=== PATIENT | male | born 1965 | race African-American/Black ===

== ENCOUNTER 2024-11-06 15:16 | Outpatient (AMB) | payer OTHER, SELFPAY ==
--- NOTE | 2024-11-06 15:21 | MHC.OFFVIS ---
Vital Signs 11/06/24 15:28 Height 6 ft 3 in Weight 276 lb BMI 34.5 BP 144/80 H Blood Pressure Location Rt brachial Position Sitting Pulse 64 Intake Visit Reasons: ventral hernia Intake Note: Patient referred by Dr. Smith for ventral hernia. Present for 5yrs. Patient c/o: on and off pain. Hx of umbilical hernia repair December 2003 in [place], [place]. [employer] Required: No Accompanied by: Self / Same As Patient Allergies No Known Allergies Allergy (Verified 11/06/24 15:25) Medication List - Last Reconciled 11/06/24 by Owen Douglas MD atorvastatin (Lipitor) 40 mg PO DAILY fluticasone propion-salmeterol 115-21 mcg/actuation (Advair HFA) 2 puffs inhalation Q12H gabapentin 600 mg PO TID montelukast 10 mg PO DAILY tamsulosin 0.4 mg PO BEDTIME NS HPI HPI ventral hernia: Details: 58-year-old male referred for an eventual hernia. He has noticed this mass in the epigastric area for over 5 years now. This has been increasing in size. He says that this has comfort has been also worsening so he wants this hernia repaired He says he had a hernia on this similar area about 20 years ago. He denies GI complaints. He says he is in good health overall. He admits to having asthma and BPH. 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, site unspecified Ventral hernia without obstruction or gangrene Other asthma Essential (primary) hypertension Hyperlipidemia Surgical History H/O cervical discectomy Hx of umbilical hernia repair Social History Patient Tobacco Use Status: Former Tobacco user Review of Systems Const Denies chills and Denies fever(s) Card Denies chest pain, Denies dyspnea and Denies dyspnea on exertion Resp Denies cough, Denies dyspnea and Denies dyspnea on exertion GI Denies hematochezia and Denies change in bowel habits Denies hematuria, Denies difficulty urinating and Reports nocturia Musc Denies back pain and Denies limited range of motion Neuro Denies focal weakness and Denies convulsions Psych Denies depression and Denies mood swings Physical Exam Vital Signs: Last Vital Signs Pulse 64 11/06/24 15:28 BP 144/80 H 11/06/24 15:28 BMI result Body Mass Index 34.5 Const Other: Obesity General: comfortable and no acute distress Orientation/consciousness: patient oriented x3 Neck Neck: Yes no lymphadenopathy Resp Auscultation: clear to auscultation bilaterally Cardio Rhythm: regular rhythm GI Other: Large vague hernia in the epigastric area with a surgical scar below this; the hernia is about 4 cm in diameter and is not reducible Palpation (GI): Soft to palpation, nontender and no guarding Neuro General: patient oriented x3 Assessment & Plan Assessment & Plan (1) Recurrent ventral hernia: Code(s): K43.2 - Incisional hernia without obstruction or gangrene Category: Medical Plan: He has a nonreducible recurrent ventral hernia as described above. He describes increasing discomfort. He wants to proceed with repair. I explained the technique of repair with possible mesh placement. I reviewed the risks including but not limited to bleeding, infections, bowel injury, recurrence, postop pain, as well as the benefits and alternatives. I explained to him what to expect postoperatively He says he understands and wants to proceed In view of the large size of the hernia, I will order for a CAT scan as well to allow for planning of approach for surgery. Orders: Orders CT abdomen pelvis wo IV con 11/06/24 K43.2 - Incisional hernia without obstruction or gangrene Medications: New tamsulosin 0.4 mg PO BEDTIME 1 cap 0RF NS montelukast 10 mg PO DAILY 30 tabs 0RF atorvastatin (Lipitor) 40 mg PO DAILY 30 tabs 0RF gabapentin 600 mg PO TID 30 tabs 0RF fluticasone propion-salmeterol 115-21 mcg/actuation (Advair HFA) 2 puffs inhalation Q12H 12 grams 0RF Coding Level of Care Code New Pt Level 3 (29440) Diagnoses Recurrent ventral hernia K43.2
[2024-11-06 15:28] VITALS: BP 144/80; PULSE 64; BMI 34.5
--- OUTSIDE RECORDS SUMMARY | 2024-11-06 15:52 | XMS_ITS | Clinical Summary ---
Author Organization [facility] [address] [facility] [address] Address [address] [place] [address] Phone Care Team Providers Care Gaming Surveillance Observer Name Role Phone Olivia Smith MD Primary Care Provider [phone] Allergies Active Allergy Reactions Criticality Noted Date Comments Mold Wheezing Low 10/29/2020 Pollen Extracts 10/04/2015 Medications fluticasone propionate (FLONASE) 50 mcg/actuation nasal spray INSTILL Two sprays per nostril once daily 12/29/19 24 Active tamsulosin (FLOMAX) 0.4 mg 24 hr capsule 07/27/19 24 Active betamethasone, augmented, (DIPROLENE-AF) 0.05 % cream Apply bid prn rash 06/22/19 24 Active albuterol HFA (PROAIR HFA ; PROVENTIL HFA ; VENTOLIN HFA) 90 mcg/actuation inhaler Inhale 2 Puffs into the lungs every 4 hours as needed for Cough or Wheezing. 12/05/19 23 Active testosterone 50 mg/5 gram (1 %) gel daily. 07/30/19 23 Active polyethylene glycol (PEG) 17 gram/dose oral powder Take 17 g by mouth daily. Dissolved in 6 oz water 11/10/19 20 Active inhalat.spacing dev,large mask spacer Use as directed 07/13/19 15 Active fluticasone propion-salmete roL (Advair HFA) 115-21 mcg/actuation inhalerIndicati ons:Mild persistent asthma, unspecified whether complicated Inhale 1 puff by mouth 2 (two) times a day. Rinse mouth with water after use to reduce aftertaste and incidence of candidiasis. Do not swallow. 180 each 03/28/20 24 Active montelukast (SINGULAIR) 10 mg tablet Take 1 Tablet by mouth at bedtime. 90 tablet 06/21/19 25 Active pantoprazole (PROTONIX) 40 mg EC tablet Take 1 tablet (40 mg total) by mouth 1 (one) time each day before breakfast. Do not crush, chew, or split. 30 each 08/18/19 25 026 Active atorvastatin (LIPITOR) 40 mg tablet Take 1 Tablet by mouth daily. 90 tablet 1 10/27/19 25 Active atorvastatin (LIPITOR) 40 mg tablet Take 1 Tablet by mouth daily. 90 tablet 1 04/28/19 25 025 Discontinued Active Problems Problem Noted Date Diagnosed Date Chest pain of uncertain etiology 08/16/2024 Assessment & Plan (08/17/2024 3:23 AM EDT): - Being hospitalized for substernal chest pain worrisome for ACS - 58-year-old man with relatively few medical problems including obesity to BMI above 34; hyperlipidemia; family history of CAD; and BPH is being hospitalized - Came to the ED with intermittent chest pressure accompanied by worsening exertional shortness of breath over the course of 3 days; denying orthopnea, nausea, palpitations, vomiting, or dizziness - In the ED, initial vital signs significant for elevated blood pressures; specifically blood pressure 140/92 mmHg, pulse 69 bpm, respiration 18 bpm, temperature 36.6 discharges, O2 sat 97% on room air and BMI documented at 34.5; twelve-lead EKG showed normal sinus rhythm at 65 bpm with no significant ST-T wave changes; screening blood test beginning from high-sensitivity cardiac troponin was normal at 4 initially and an hour later at 5; CBC, CMP, lipase, magnesium and BNP all essentially within normal limits; he remained symptom-free in the ED and hospital medicine was asked admit for chest pain with shortness of breath. For ACS for this further evaluation - Would admit to hospital medicine for chest pain worrisome for ACS; telemetry; completely exclude ACS by cardiac exam and EKG; interval echo; cardiology consult; consider inpatient versus outpatient cardiac stress test guided by cardiology input Hypertension 03/26/2022 Overview (02/01/2024): Last Assessment & Plan: Patient's blood pressure was under excellent control with a reading today of 130/80. He is not on any antihypertensive medical therapies. I have reviewed with the patient the importance of a heart healthy lifestyle which includes eating a low-fat low- salt diet, getting regular exercise, maintaining a healthy weight, not smoking, and following up with routine medical care. Assessment & Plan (08/17/2024 3:22 AM EDT): - Continue outpatient regimen for known hypertension; monitor BP control Edema 03/26/2022 Overview (02/01/2024): Last Assessment & Plan: We did discuss his leg edema. It is better at this point. We did discuss doing a venous reflux study to rule out insufficiency as a cause of his leg edema. He is in favor of doing this. I have ordered this for him. He will continue to work on conservative management including salt avoidance, leg elevation and compression stocking usage. If his legs become edematous he will let us know. We also will monitor his blood pressure as this could be playing a role. If this does not improve then he will let us know. BPH (benign prostatic hyperplasia) 08/04/2021 Overview (02/01/2024): urology Liver mass 11/09/2019 Obesity (BMI 30-39.9) 05/05/2019 Assessment & Plan (08/17/2024 3:22 AM EDT): - Continue to advise on the benefit of weight loss targeting ideal body weight and to review the cardiovascular risks of continued obesity - Would coordinate weight loss strategy and programming with PCP - Review that weight loss strategies combining exercise with diet and high degree of patient's motivation have benefits - Avoid weight loss strategies full of the promises of rapid and large amount of weight changes which are difficult to maintain in real life, skilled nursing Hypogonadism in male 02/17/2017 Overview (02/01/2024): On testosterone gel Asthma 09/27/2014 Hypercholesteremia 05/16/2014 Overview (02/01/2024): Last Assessment & Plan: Patient's last LDL cholesterol was 57. This is showing excellent control. I have renewed his atorvastatin 40 mg once a day for the next year. I have asked him to discuss with his primary care provider to take over this medication as he does not need to follow with cardiology for the primary prevention for the management of his hyperlipidemia. Patient is in agreement with this. He will call if he develops any new symptoms. Assessment & Plan (08/17/2024 3:22 AM EDT): - Continue patient regimen for known hyperlipidemia unchanged Hyperglycemia 05/16/2014 Neuropathy 03/07/2014 Overview (02/01/2024): D/t cervical spine damage Decreased testosterone level 02/26/2014 Overview (02/01/2024): urology Encounters Date Type Department Care Team Description 08/16/2024 9:32 PM EDT - 08/17/2024 1:41 PM EDT Hospital Encounter [facility] [address] [place] [id number] Jeff Carrera MD Maduakor, Emmanuel C, MD Alam, Aroosa, MD Chest pain, unspecified type (Primary Dx); Dyspnea on exertion; Chest pain of uncertain etiology Discharge Disposition: Home or Self Care from Last 3 Months Immunizations Name Administration Dates Next Due Influenza Quadravalent, MDCK , 0.5ml, preservative free (Flucelvax) 6mo and older 02/03/2022,02/17/2021,01/30/2020,05/05,02/23/2018 Influenza trivalent, 0.5mL, preservative free (Fluarix; FluLaval; Fluzone) ages 6mo and older (Afluria) 3 years and older 01/17/2016,02/18/2015,03/07/2014 Pfizer (ages 12 & older) Biv alent, COVID-19 05/16/2022 Ideaxis SARS-CoV-2 COVID-19, mRNA, LNP-S, preservative free 08/21/2021 Pneumococcal polysaccharide 23 valent (Pneumovax 23) 2yo and older 09/27/2014 Tdap Tetanus diptheria acell ular pertussis (Boostrix; Adacel) 7yo and older 03/07/2014 Surgical History Surgery Date Site/Laterality Comments COLONOSCOPY 12/02/2009 PROCEDURE: HISTORICAL COLONOSCOPY; COMMENT: Blaine Shukla, HERNIA REPAIR 2003 PROCEDURE: HISTORICAL HERNIA REPAIR/UMB NECK SURGERY PROCEDURE: HISTORICAL NECK SURGERY; COMMENT: ant cervical discectomy COLONOSCOPY 11/22/2017 PROCEDURE: HISTORICAL COLONOSCOPY; COMMENT: Small lipoma transverse colon Medical History Medical History Date Comments Decreased testosterone level 02/26/2014 DX: Decreased testosterone level; COMMENT: Per transfer records 05/31/12 Asthma 09/27/2014 DX:Asthma Hypercholesteremia 05/16/2014 DX:Hyperchole steremia Hyperglycemia 05/16/2014 DX:Hyperglycemia Hypogonadism in male 02/17/2017 DX:Hypogona dism in male; COMMENT: On testosterone gel Neuropathy 03/07/2014 DX:Neuropathy; C OMMENT: D/t cervical spine damage Obesity 03/07/2014 DX:Obesity Family History Medical History Relation Name Comments Breast cancer Aunt Heart attack Brother 1 smoker,Hyperten trisha, Glaucoma Lung cancer Brother 2 cig Lung cancer Brother 3 cig Alcohol/Drug Brother 4 Diabetes Father CA of Pancreas, CVA Hypertension Mother Glaucoma Other cancer Sister CA leg, Depress ion/Anxiety Relation Name Status Comments Aunt Brother 1 Brother 2 Brother 3 Brother 4 Father Mother Sister (Age 20) Social History Tobacco Use Types Packs/Day Years Used Date Smoking Tobacco: Former Cigarettes Q uit: 03/05/1998 Smokeless Tobacco: Never Tobacco Cessation:Counseling Given: Not Answered Alcohol Use Standard Drinks/Week Comments Yes 0 (1 standard drink = 0.6 oz pur e alcohol) Food Risk Answer Date Recorded Within the past 12 months we worried whether our food would run out before we got money to buy more. Never true 08/17/2024 Within the past 12 months th e food we bought just didn't last and we didn't have money to get more. Never true 08/17/2024 Interpersonal Safety Answer Date Record ed Physical Abuse 08/17/2024 Verbal Abuse 08/17/2024 Sex and Gender Information Value Date Recorded Sex Assigned at Male 08/16/2024 4:32 PM EDT Legal Sex Male 10:30 AM EST Gender Identity Male 08/16/2024 4:32 PM EDT Sexual Orientation Straight 08/16/2024 4: 32 PM EDT Obstetrics History Last Filed Vital Signs Vital Sign Reading Time Taken Comments Blood Pressure 155/91 08/17/2024 11:34 AM EDT Pulse 50 08/17/2024 11:34 AM EDT Temperature 36.5 C (97.7 F) 08/17/2024 11:34 AM EDT Respiratory Rate 18 08/17/2024 9:00 AM EDT Oxygen Saturation 96% 08/17/2024 11:34 AM EDT Inhaled Oxygen Concentration - - Weight 125 kg (275 lb) 08/17/2024 11:39 AM EDT Height 190.5 cm (6' 3 ) 08/17/2024 11:39 AM EDT Body Mass Index 34.37 08/17/2024 11:39 AM EDT Plan of Treatment Health Maintenance Due Date Last Done Comments Zoster Vaccines (1 of 2) 12/21/2013 Pneumococcal Vaccine: 50+ Years (2 of 2 - PCV) 09/28/2015 09/27/2014 HIV Screening 03/28/2022 COVID-19 Vaccine ( season) 2023 05/16/2022, 08/21/2021, 02/24/2021, Additional history exists RSV Immunization Adult Patients (1 - Risk 60-74 years 1-dose series) 2023 DTaP,Tdap,and Td Vaccines (2 - Td or Tdap) 03/07/2024 03/07/2014 Depression Screening 04/19/2024 Influenza Vaccine (#1) 2024 , 02/03/2022, 02/17/2021, Additional history exists Hypertension/CHF/CAD Annual BMP Blood Test 08/16/2025 08/16/2024, 09/07/2023, 09/07/2023 Social Influencers of Health Screening 08/17/2025 08/17/2024 Colorectal Cancer Screening: Colonoscopy 11/23/2027 11/22/2017 Cholesterol Screening (Lipid Panel) 08/17/2029 08/17/2024, 09/07/2023, 09/07/2023 Hepatitis C Screening Completed 03/05/2017 HIB Vaccines Aged Out No longer eligi ble based on patient's age to complete this topic HPV Vaccines Aged Out No longer eligi ble based on patient's age to complete this topic Hepatitis A Vaccines Aged Out No long er eligible based on patient's age to complete this topic Hepatitis B Vaccines Aged Out No long er eligible based on patient's age to complete this topic IPV Vaccines Aged Out No longer eligi ble based on patient's age to complete this topic MMR Vaccines Aged Out No longer eligi ble based on patient's age to complete this topic Meningococcal ACWY Vaccine Aged Out N o longer eligible based on patient's age to complete this topic Meningococcal B Vaccine Aged Out No l onger eligible based on patient's age to complete this topic RSV Immunization Patients Under 20 months Aged Out No longer eligible based on patient's age to complete this topic Varicella Vaccines Aged Out No longer eligible based on patient's age to complete this topic Procedures Procedure Name Priority Date/Time Associated Diagnosis Comments ECG ANNOTATED 08/18/2024 ECG 12-LEAD Routine 08/17/2024 1:03 PM EDT TRANSTHORACIC ECHOCARDIOGRAM (TTE) COMPLETE W/ CONTRAST Routine 08/17/2024 10:48 AM EDT Chest pain of uncertain etiology CT ANGIO CHEST WO AND/OR W CONTRAST STAT 08/17/2024 9:54 AM EDT Chest pain of uncertain etiology TROPONIN I HIGH SENSITIVITY Timed 08/17/2024 4:19 AM EDT TROPONIN I HIGH SENSITIVITY Timed 08/17/2024 3:17 AM EDT LIPID PANEL WITH REFLEX TO DIRECT LDL Routine 08/17/2024 3:17 AM EDT XR CHEST 2 VIEWS STAT 08/16/2024 9:36 PM EDT TROPONIN I HIGH SENSITIVITY STAT 08/16/2024 7:48 PM EDT ECG 12-LEAD STAT 08/16/2024 7:46 PM EDT CBC WITH AUTO DIFFERENTIAL STAT 08/16/2024 4:07 PM EDT B-TYPE NATRIURETIC PEPTIDE STAT 08/16/2024 4:07 PM EDT MAGNESIUM STAT 08/16/2024 4:07 PM EDT LIPASE STAT 08/16/2024 4:07 PM EDT COMPREHENSIVE METABOLIC PANEL STAT 08/16/2024 4:07 PM EDT CBC AND DIFFERENTIAL STAT 08/16/2024 4:07 PM EDT TROPONIN I HIGH SENSITIVITY STAT 08/16/2024 4:07 PM EDT ECG 12-LEAD STAT 08/16/2024 3:42 PM EDT COLONOSCOPY Routine 11/22/2017 HEPATITIS C SCREENING Routine 03/05/2017 from Last 3 Months or Most Recently Relevant to Health Maintenance Results * ECG-Annotated (08/18/2024) us Provider Onbase MD ECG ORDERABLES Final Result * ECG 12 lead - Routine (08/17/2024 1:03 PM EDT) Only the most recent of3 resultswithin the time period is included. Ventricular Rate ECG 53 BPM GEMUSE Atrial Rate 53 BPM GEMUSE P-R Interval 134 ms GEMUSE QRS Duration 84 ms GEMUSE Q-T Interval 426 ms GEMUSE QTc 399 ms GEMUSE P Wave [place] 7 degrees GEMUSE R [place] 9 degrees GEMUSE T [place] 40 degrees GEMUSE ECG Interpretation Sinus bradycardia Possible Left atrial enlargement Nonspecific ST and T wave abnormality Abnormal ECG When compared with ECG of 16-AUG-2024 19:46, (unconfirmed) No significant change was found Confirmed by NAI PRATHER ([id number]) on 08/17/2024 6:19:04 PM GEMUSE 08/17/2024 1:03 PM EDT 08/17/2024 6:19 PM EDT us Jeff Rowe MD ECG ORDERABLES Final Res ult MT * (ABNORMAL) TRANSTHORACIC ECHOCARDIOGRAM (TTE) COMPLETE W/ CONTRAST (08/17/2024 10:48 AM EDT) BSA 2.57 m2 CV PACS Left Atrium Major [place] 5.6 cm CV PACS LA Area Sys (A4C) 17 cm2 CV PACS RA Area 16.5 cm2 CV PACS RA 2D Volume 40 mL CV PACS Aortic Sinus Valsalva 3.6 cm CV PACS Ascending Aorta 3.6 cm CV PACS IVSD 1.2(A) 0.6 - 1.0 cm CV PACS LVIDD 5.1 4.2 - 5.8 cm CV PACS LVIDS 3.0 2.5 - 4.0 cm CV PACS LVOT Diameter 2.2 cm CV PACS LVPWD 1.2(A) 0.6 - 1.0 cm CV PACS MV E' Tissue Velocity Lateral 9 cm/s CV PACS MV E' Tissue Velocity Septal 6 cm/s CV PACS LVOT Area 3.8 cm2 CV PACS MV Deceleration Bent 2.5 m/s2 CV PACS E Wave Deceleration Time 256(A) 119 - 242 ms CV PACS MV PHT 75 ms CV PACS MV Peak A Travis 0.50 m/s CV PACS MV Peak E Travis 0.64 m/s CV PACS MV Area PHT 2.9 cm2 CV PACS RV Diastolic Basal Dimension 3.5 2.5 - 4.1 cm CV PACS RV S' 10 cm/s CV PACS TAPSE 22 mm CV PACS TR Peak Velocity 2.21 m/s CV PACS TR Peak Gradient 20 mmHg CV PACS E/E' Ratio Septal 11 CV PACS E/E' Ratio Averaged 9 CV PACS Relative Wall Thickness ratio 0.47 CV PACS FS 41 % CV PACS LV Mass 2D 241 g CV PACS Ascending Aorta Index 1.43 cm/m2 CV PACS RA 2D Volume Index 16 mL/m2 CV PACS LVIDD Index 2.02 cm/m2 CV PACS LVIDS Index 1.19 cm/m2 CV PACS E/A Ratio 1.3 CV PACS E/E' Ratio Lateral 7 CV PACS LV Mass Index 2D 96 g/m2 CV PACS Right Ventricular Peak Systolic Pressure 23 mmHg CV PACS Est. RA Pressure 3 mmHg CV PACS Anatomical Region Laterality Modality Ultrasound Narrative 08/17/2024 1:00 PM EDT Left Ventricle: There is mild concentric hypertrophy. Systolic function is normal with an ejection fraction of 55-60%. There is no diastolic dysfunction. There is mild hypokinesis of the basal anterolateral wall of the left ventricle. Left ventricle mild concentric hypertrophy. Right ventricle cavity is normal. Right ventricular systolic function is normal. Mitral Valve: There is mild regurgitation. Tricuspid Valve: There is mild regurgitation. The right ventricular systolic pressure is normal. Estimated RA pressure is 3 mmHg. The RVSP is estimated at 23 mmHg. Left Ventricle Left ventricle cavity size is normal. There is mild concentric hypertrophy. Systolic function is normal with an ejection fraction of 55-60%. There is mild hypokinesis of the basal anterolateral wall. There is no diastolic dysfunction. Right Ventricle Right ventricle cavity appears normal. Systolic function is normal. Left Atrium Left atrium cavity size is normal. Right Atrium Right atrium cavity is normal. IVC/SVC Inferior vena cava structure is normal. RA pressures is estimated to be 3 mmHg (IVC diameter <21 mm and decreases >50% during inspiration). Mitral Valve The leaflets are mildly thickened. There is calcification of the anterior leaflet subvalvular apparatus. There is calcification of the posterior leaflet subvalvular apparatus. There is mild regurgitation. There is no evidence of mitral valve stenosis. Tricuspid Valve The leaflets exhibit normal excursion. There is mild regurgitation. There is no evidence of tricuspid valve stenosis. The right ventricular systolic pressure is normal. Estimated RA pressure is 3 mmHg. The RVSP is estimated at 23 mmHg. Aortic Valve The aortic valve is trileaflet. There is no regurgitation or stenosis. Pulmonic Valve Visualized portions of the pulmonic valve appear normal. There is no regurgitation or stenosis. Ascending Aorta The aorta appears normal in size. Pericardium There is an anterior fat pad. There is no pericardial effusion. Study Details Overall the study quality was technically difficult. Definity contrast was given to enhance imaging. us [facility] CV ECHO PROCEDURES Final R esult * CT Angio Chest wo and/or w Contrast (08/17/2024 9:54 AM EDT) Anatomical Region Laterality Modality Body Computed Tomogra phy 08/17/2024 11:4 8 AM EDT Impressions 08/17/2024 11:52 AM EDT No pulmonary arterial emboli. No acute findings in the chest. -------- FINAL REPORT -------- Dictated By: PRINCE GALVAN Dictated Date: 08/17/2024 11:48 ET Assigned Physician: PRINCE GALVAN Reviewed and Electronically Signed By: PRINCE GALVAN Signed Date: 08/17/2024 11:52 ET Workstation ID: [id number] Transcribed By: Self Edit Transcribed Date: 08/17/2024 11:48 ET Narrative 08/17/2024 11:52 AM EDT PROCEDURE: Chest CTA INDICATION: Chest pain TECHNIQUE: Chest CTA with intravenous administration of 90cc ISOVUE-370. Multi planar reformats were created and interpreted. The examination was performed utilizing dose reduction techniques.3-D or MIP images were produced with postprocessing on an independent computer workstation. Total DLP 716 COMPARISON: 05/30/2020 FINDINGS: CTA: No pulmonary arterial emboli. Thoracic aorta is normal in size. No dissection. Minimal coronary artery calcifications. Exam was not tailored to evaluate the coronary arteries. LUNGS/PLEURA: Central airways are patent. Mild left basilar atelectasis. No pleural effusion or pneumothorax.. No pleural effusion or pneumothorax. MEDIASTINUM: No pulmonary arterial emboli. Thyroid gland is unremarkable. No mediastinal or hilar lymphadenopathy. Cardiac chambers are normal in size. No pericardial effusion. Small hiatal hernia. CHEST WALL: No axillary lymphadenopathy or superficial hematoma. UPPER ABDOMEN:Hepatic cysts. BONES: No acute fracture. Scattered degenerative changes seen throughout the bones. Procedure Note Prince Galvan MD - 08/17/2024 PROCEDURE: Chest CTA INDICATION: Chest pain TECHNIQUE: Chest CTA with intravenous administration of 90cc ISOVUE-370.Multi planar reformats were created and interpreted. The examination wasperformed utilizing dose reduction techniques.3-D or MIP images wereproduced with postprocessing on an independent computer workstation.Total DLP 716 COMPARISON: 05/30/2020 FINDINGS: CTA: No pulmonary arterial emboli. Thoracic aorta is normal in size. Nodissection. Minimal coronary artery calcifications. Exam was nottailored to evaluate the coronary arteries. LUNGS/PLEURA: Central airways are patent. Mild left basilar atelectasis.No pleural effusion or pneumothorax.. No pleural effusion orpneumothorax. MEDIASTINUM: No pulmonary arterial emboli. Thyroid gland is unremarkable.No mediastinal or hilar lymphadenopathy. Cardiac chambers are normal insize. No pericardial effusion. Small hiatal hernia. CHEST WALL: No axillary lymphadenopathy or superficial hematoma. UPPER ABDOMEN:Hepatic cysts. BONES: No acute fracture. Scattered degenerative changes seen throughoutthe bones. IMPRESSION: No pulmonary arterial emboli. No acute findings in the chest. -------- FINAL REPORT -------- Dictated By: PRINCE GALVAN Dictated Date: 08/17/2024 11:48 ET Assigned Physician: PRINCE GALVAN Reviewed and Electronically Signed By: PRINCE GALVAN Signed Date: 08/17/2024 11:52 ET Workstation ID: [id number] Transcribed By: Self Edit Transcribed Date: 08/17/2024 11:48 ET [facility] [place] PROCEDURES Final Re sult * Troponin I high sensitivity (NOW and then in 1 hour) (08/17/2024 4:19 AM EDT) Only the most recent of4 resultswithin the time period is included. High Sensitivity Troponin I 8 <=79 ng/L LAB CHEMISTRY METHOD 08/17/2024 5:06 AM EDT [facility] Blood Venous blood specimen / Unknown Venipuncture / Unknown 08/17/2024 4:19 AM EDT 08/17/2024 4:23 AM EDT Narrative [facility] - 08/17/2024 5:06 AM EDT High levels of biotin in samples may falsely decrease hsTroponin values. Use caution when interpreting hsTroponin results in patients taking biotin who exhibit renal impairment (eGFR <60) or in patients taking more than 20 mg/day of biotin. Jeff Rowe MD LAB BLOOD ORDERABLES Latricia matthews Result [facility] [address] [place] [address], [place] [phone] * Lipid panel with reflex to direct LDL (08/17/2024 3:17 AM EDT) Cholesterol 122 0 - 200 mg/dL LAB CHEMISTRY METHOD 08/17/2024 3:53 AM EDT [facility] Triglycerides 51 0 - 150 mg/dL LAB CHEMISTRY METHOD 08/17/2024 3:53 AM EDT [facility] HDL 56 >=40 mg/dL LAB CHEMISTRY METHOD 08/17/2024 3:53 AM EDT [facility] LDL Calculated 56 0 - 100 mg/dL LAB CHEMISTRY METHOD 08/17/2024 3:53 AM [facility] VLDL Cholesterol Rolando 10.2 mg/dL LAB CHEMISTRY METHOD 08/17/2024 3:53 AM EDT [facility] Non HDL Chol. (LDL+VLDL) 66 <145 mg/dL LAB CHEMISTRY METHOD 08/17/2024 3:53 AM EDT [facility] Chol/HDL Ratio 2.2 0.0 - 4.4 LAB CHEMISTRY METHOD 08/17/2024 3:53 AM [facility] Blood Venous blood specimen / Unknown Venipuncture / Unknown 08/17/2024 3:17 AM EDT 08/17/2024 3:21 AM EDT us Jeff Rowe MD LAB BLOOD ORDERABLES Latricia cassie Result [facility] [address] [place] [address], [place] [phone] * XR Chest 2 Views (08/16/2024 9:36 PM EDT) Anatomical Region Laterality Modality Body Radiographic Berta ging 08/17/2024 6:42 AM EDT Impressions 08/17/2024 6:44 AM EDT No pneumonia or edema. -------- FINAL REPORT -------- Dictated By: Kevin Matthews Dictated Date: 08/17/2024 06:42 ET Assigned Physician: Kevin Matthews Reviewed and Electronically Signed By: Kevin Matthews Signed Date: 08/17/2024 06:44 ET Workstation ID: [id number] Transcribed By: Self Edit Transcribed Date: 08/17/2024 06:42 ET Narrative 08/17/2024 6:44 AM EDT EXAMINATION: CHEST CLINICAL INFORMATION: Shortness of breath, chest pain, dizziness COMPARISON: Frontal view 05/30/20 TECHNIQUE: 2 views of the chest FINDINGS: Moderate rotation to the left. There is tortuosity of the aorta. Cardiac size hood and vasculature are within normal limits. There is no consolidation or major solid atelectasis. No significant pleural fluid or pneumothorax. Evidence of lower cervical instrumentation Procedure Note Kevin Matthews MD - 08/17/2024 EXAMINATION: CHEST CLINICAL INFORMATION: Shortness of breath, chest pain, dizziness COMPARISON: Frontal view 05/30/20 TECHNIQUE: 2 views of the chest FINDINGS: Moderate rotation to the left. There is tortuosity of the aorta. Cardiac size hood and vasculature arewithin normal limits. There is no consolidation or major solidatelectasis. No significant pleural fluid or pneumothorax. Evidence of lower cervical instrumentation IMPRESSION: No pneumonia or edema. -------- FINAL REPORT -------- Dictated By: Kevin Matthews Dictated Date: 08/17/2024 06:42 ET Assigned Physician: Kevin Matthews Reviewed and Electronically Signed By: Kevin Matthews Signed Date: 08/17/2024 06:44 ET Workstation ID: [id number] Transcribed By: Self Edit Transcribed Date: 08/17/2024 06:42 ET Jeff B Deandre MELARA IMG XR PROCEDURES Final Result * (ABNORMAL) CBC auto differential (08/16/2024 4:07 PM EDT) [facility] WBC 7.1 4.8 - 10.8 K/mcL LAB HEMETOLOGY METHOD 08/16/2024 4:34 PM EDT [facility] RBC 4.50 4.50 - 5.50 M/mcL LAB HEMETOLOGY METHOD 08/16/2024 4:34 PM EDT [facility] Hemoglobin 13.7 13.5 - 17.5 g/dL LAB HEMETOLOGY METHOD 08/16/2024 4:34 PM EDT [facility] Hematocrit 41.5(L) 42.0 - 54.0 % LAB HEMETOLOGY METHOD 08/16/2024 4:34 PM EDT [facility] MCV 92.8 79.0 - 98.0 FL LAB HEMETOLOGY METHOD 08/16/2024 4:34 PM EDT [facility] MCH 30.6 27.0 - 32.0 pcg LAB HEMETOLOGY METHOD 08/16/2024 4:34 PM EDT [facility] MCHC 33.0 32.0 - 37.0 g/dL LAB HEMETOLOGY METHOD 08/16/2024 4:34 PM EDT [facility] RDW 13.0 11.0 - 15.0 % LAB [facility] Plate[facility] 188 130 - 400 K/mcL LAB HEMETOLOGY METHOD 08/16/2024 4:34 PM EDT [facility] MPV 9.3 7.0 - 11.0 FL LAB HEMETOLOGY METHOD 08/16/2024 4:34 PM EDT [facility] NRBC 0.0 <1.0 % LAB [facility]EMETOLOGY [facility]/16[facility]2024 [facility] NRBC Absolute 0.00 <0.10 K/mcL LAB HEMETOLOGY METHOD 08/16[facility]2024 4[facility] Neutrophils Relative 57.6 % LAB HEMETOLOGY METHOD 08/16/2024 4:34 PM [facility] Lymphocytes Relative 27.3 % LAB HEMETOLOGY METHOD 08/16/2024 4:34 PM [facility] Monocytes Relative 6.6 % LAB HEMETOLOGY METHOD 08/16/2024 4:34 PM [facility] Eosinophils Relative 7.5 % LAB HEMETOLOGY METHOD 08/16/2024 4:34 PM [facility] Basophils Relative 0.7 % LAB HEMETOLOGY METHOD 08/16/2024 4:34 PM [facility] Immature Granulocytes Relative 0.3 % LAB HEMETOLOGY METHOD 08/16/2024 4:34 PM [facility] Neutrophils Absolute 4.10 1.50 - 7.00 K/mcL LAB HEMETOLOGY METHOD 08/16/2024 4:34 PM EDT [facility] Lymphocytes Absolute 1.94 1.00 - 5.00 K/mcL LAB HEMETOLOGY METHOD 08/16[facility]2024 4[facility] Monocytes Absolute 0.47 0.20 - 1.00 K/mcL LAB HEMETOLOGY METHOD 08/16/2024 4:34 PM [facility] Eosinophils Absolute 0.53(H) 0.00 - 0.50 K/mcL LAB HEMETOLOGY METHOD 08/16/2024 4:34 PM EDT [facility] Basophils Absolute 0.05 0.00 - 0.20 K/[facility] LAB HEMETOLOGY METHOD 08/16/2024 4:34 PM EDT [facility] Immature Granulocytes Absolute 0.02 0.00 - 0.03 K/[facility] LAB HEMETOLOGY METHOD 08/16/2024 4:34 PM EDT [facility] Blood Venous blood specimen / Unknown Venipuncture / Unknown 08/16/2024 4:07 PM EDT 08/16/2024 4:26 PM EDT us Jeff Carrera MD LAB BLOOD ORDERABLES Final Resu lt Performing Organization Address [facility]/ZIP Co de Phone Number [facility] [address] [place] [address], [place] [phone] * B-type natriuretic peptide (08/16/2024 4:07 PM EDT) BNP 39 <=100 pcg/mL LAB CHEMISTRY METHOD 08/16/2024 5:01 PM EDT [facility] Blood Venous blood specimen / Unknown Venipuncture / Unknown 08/16/2024 4:07 PM EDT 08/16/2024 4:26 PM EDT us Jeff Carrera MD LAB BLOOD ORDERABLES Final Resu lt [facility] [address] [place] [address], [place] [phone] * Magnesium (08/16/2024 4:07 PM EDT) Magnesium 2.2 1.9 - 2.6 mg/dL LAB CHEMISTRY METHOD 08/16/2024 5:20 PM EDT [facility] Blood Venous blood specimen / Unknown Venipuncture / Unknown 08/16/2024 4:07 PM EDT 08/16/2024 4:26 PM EDT us Jeff Carrera MD LAB BLOOD ORDERABLES Final Resu lt [facility] [address] [place] [address], [place] [phone] * Lipase (08/16/2024 4:07 PM EDT) Lipase 45 13 - 75 unit/L LAB CHEMISTRY METHOD 08/16/2024 5:20 PM EDT [facility] Blood Venous blood specimen / Unknown Venipuncture / Unknown 08/16/2024 4:07 PM EDT 08/16/2024 4:26 PM EDT Jeff Carrera MD LAB BLOOD ORDERABLES Final Resu lt Performing Organization Address City/[facility]/ZIP Co de Phone Number [facility] [address] [place] [address], [place] [phone] * (ABNORMAL) Comprehensive metabolic panel (08/16/2024 4:07 PM EDT) Pathologist [facility] Sodium 141 133 - 145 mmol/L LAB CHEMISTRY METHOD 08/16/2024 5:20 PM EDT [facility] Potassium 4.0 3.5 - 5.5 mmol/L LAB CHEMISTRY METHOD 08/16/2024 5:20 PM EDT [facility] Chloride 108 96 - 110 mmol/L LAB CHEMISTRY METHOD 08/16/2024 5:20 PM EDT [facility] CO2 26 21 - 32 mmol/L LAB CHEMISTRY METHOD 08/16/2024 5:20 PM EDT [facility] Anion Gap 7 3 - 11 LAB CHEMISTRY METHOD 08/16/2024 5:20 PM EDT [facility] Glucose 104(H) 70 - 100 mg/dL LAB CHEMISTRY METHOD 08/16/2024 5:20 PM [facility] BUN 11 5 - 25 mg/dL LAB CHEMISTRY METHOD 08/16/2024 5:20 PM [facility] Creatinine 0.99 0.70 - 1.30 mg/dL LAB CHEMISTRY METHOD 08/16/2024 5:20 PM [facility] eGFR 87 >=60 mL/min/1. 73m2 LAB CHEMISTRY METHOD 08/16/2024 5:20 PM [facility] Comment:Calculation based on the Chronic Kidney Disease Epidemiology Collaboration (CKD-EPI) equation refit without adjustment for race. BUN/Creatinine Ratio 11.1 LAB CHEMISTRY METHOD 08/16/2024 5:20 PM [facility] Calcium 8.9 8.5 - 10.5 mg/dL LAB CHEMISTRY METHOD 08/16/2024 5:20 PM [facility] AST (SGOT) 23 10 - 42 unit/L LAB CHEMISTRY METHOD 08/16/2024 5:20 PM [facility] ALT (SGPT) 34 10 - 60 unit/L LAB CHEMISTRY METHOD 08/16/2024 5:20 PM [facility] Alkaline Phosphatase 59 42 - 121 unit/L LAB CHEMISTRY METHOD 08/16/2024 5:20 PM [facility] Total Protein 7.2 6.0 - 8.0 g/dL LAB CHEMISTRY METHOD 08/16/2024 5:20 PM [facility] Albumin 3.9 3.2 - 5.0 g/dL LAB CHEMISTRY METHOD 08/16/2024 5:20 PM [facility] Total Bilirubin 0.4 0.0 - 1.4 mg/dL LAB CHEMISTRY METHOD 08/16/2024 5:20 PM [facility] Blood Venous blood specimen / Unknown Venipuncture / Unknown 08/16/2024 4:07 PM EDT 08/16/2024 4:26 PM EDT Jeff Carrera MD LAB BLOOD ORDERABLES Final Resu lt [facility] [address] [place] [address], [place] [phone] * Colonoscopy (11/22/2017) Colonoscopy no interpretation , abstracted Anatomical Region Laterality Modality Other Historical Provider HEALTH MAINTENANCE Final Result * Hepatitis C Screening (03/05/2017) Hepatitis C Screening abstracted Historical Provider HEALTH MAINTENANCE Final Result from Last 3 Months or Most Recently Relevant to Health Maintenance Insurance [facility] Advance Directives * Full Code - Default (Latest Code Status on File) Date Activated Date Inactivated Comments 08/17/2024 3:05 AM 08/17/2024 3:46 PM This is order is used when code status has not been discussed with the patient, or code status is otherwise unknown/unconfirmed To update the patient's code status, place a code status order. Do not modify or discontinue any currently active code status orders. Care Teams Gaming Surveillance Observer Relationship Specialty Start Date End Date Olivia Smith MD [address] [phone] PCP - General Internal Medicine 08/16/24
== END 2024-11-06 15:37 | disposition home or self-care (01) ==
LOC: HO.HGS 15:20
PROVIDERS: PCP Internal Medicine; Visit Provider Surgery
DX: K43.2 Incisional hernia without obstruction or gangrene (principal)
CPT/HCPCS: 99203

== ENCOUNTER → 2024-11-06 15:16 | Outpatient (BNVA) | payer OTHER, SELFPAY | PROVIDERS: PCP Internal Medicine; Visit Provider Surgery | DX: K43.2 Incisional hernia without obstruction or gangrene (principal) | CPT/HCPCS: 99202 ==

== ENCOUNTER 2025-02-08 07:24 | Outpatient (REF) | payer OTHER, SELFPAY ==
--- NOTE | ~2025-02-08 | CT_ITS ---
CLINICAL HISTORY: K43.2 - Incisional hernia without obstruction or gangrene Exam: Unenhanced CT abdomen and pelvis with multiplanar reformats. Comparison: None. Findings: CT abdomen: Lung bases appear clear. Small hiatal hernia. Liver reveals a 16 mm segment 4A or segment 2 cyst (6; 59, 13 Hounsfield units). An additional subcentimeter segment 8 hypodensity (6; 30) is too small to characterize although likely tiny cyst. No other focal lesions or ductal dilatation. Gallbladder appears unremarkable. Spleen appears unremarkable. Pancreas and adrenal glands appear unremarkable. Kidneys reveal a small 15 mm left renal lower pole parapelvic cyst (6; 223, -1 Hounsfield units). Kidneys otherwise unremarkable. No urolithiasis or hydroureteronephrosis. No free intraperitoneal fluid or retroperitoneal masses or adenopathy. Abdominal aorta is normal caliber. Bowel loops reveal no abnormal wall thickening or distention. The appendix appears unremarkable. No significant diverticular disease. Anterior abdominal wall reveals a supraumbilical fat containing anterior abdominal wall in the midline measuring up to 11.7 x 5.9 cm transverse and AP dimension (6; 307, and 8.0 cm craniocaudad dimension (5; 108). No bowel loops in the hernia sac. No fluid or stranding in the hernia sac. A small fat containing umbilical hernia measuring 15 mm transverse dimension (6; 411) is noted as well, no bowel loops in this hernia sac as well. No other abdominal wall hernias. CT pelvis: Prostate gland measures 5.2 cm transverse dimension. Urinary bladder is nondistended. No pelvic masses, fluid or adenopathy. Osseous structures reveal no destructive osseous lesions. Impression: 1. Fat containing anterior abdominal wall hernias as described above. No bowel loops, fluid or stranding in the hernia sacs. This document has been electronically signed by: Jerardo Banegas MD on 02/09/2025 13:37:51
--- OUTSIDE RECORDS SUMMARY | 2025-02-08 07:27 | XMS_ITS | Clinical Summary ---
Author Organization [facility] [address] [facility] lding Address [address] [place] [address] Phone Care Team Providers Care Shot Core Drill Operator Name Role Phone Olivia Smith MD Primary Care Provider [phone] Allergies Active Allergy Reactions Criticality Noted Date Comments Mold Wheezing Low 10/29/2020 Pollen Extracts 10/04/2015 Medications fluticasone propionate (FLONASE) 50 mcg/actuation nasal spray INSTILL Two sprays per nostril once daily 4 Active tamsulosin (FLOMAX) 0.4 mg 24 hr capsule 4 Active betamethasone, augmented, (DIPROLENE-AF) 0.05 % cream Apply bid prn rash 4 Active albuterol HFA (PROAIR HFA ; PROVENTIL HFA ; VENTOLIN HFA) 90 mcg/actuation inhaler Inhale 2 Puffs into the lungs every 4 hours as needed for Cough or Wheezing. 3 Active testosterone 50 mg/5 gram (1 %) gel daily. 3 Active polyethylene glycol (PEG) 17 gram/dose oral powder Take 17 g by mouth daily. Dissolved in 6 oz water 0 Active inhalat.spacing dev,large mask spacer Use as directed 5 Active fluticasone propion-salmeter oL (Advair HFA) 115-21 mcg/actuation inhalerIndicatio ns:Mild persistent asthma, unspecified whether complicated Inhale 1 puff by mouth 2 (two) times a day. Rinse mouth with water after use to reduce aftertaste and incidence of candidiasis. Do not swallow. 180 each 4 Active montelukast (SINGULAIR) 10 mg tablet Take 1 Tablet by mouth at bedtime. 90 tablet 5 Active pantoprazole (PROTONIX) 40 mg EC tablet Take 1 tablet (40 mg total) by mouth 1 (one) time each day before breakfast. Do not crush, chew, or split. 30 each 5 08/18/19 26 Active atorvastatin (LIPITOR) 40 mg tablet Take 1 Tablet by mouth daily. 90 tablet 1 5 Active Active Problems Problem Noted Date Diagnosed Date [...] are difficult to maintain in real life, snf Hypogonadism in male 02/17/2017 Overview (02/01/2024): On [...] Decreased testosterone level 02/26/2014 Overview (02/01/2024): urology Immunizations Immunization Administration Dates Next Due Influenza Quadravalent, MDCK , 0.5ml, preservative free (Flucelvax) 6mo and older 02/03/2022,02/17/2021,01/30/2020,05/05,02/23/2018 Influenza trivalent, 0.5mL, preservative free (Fluarix; FluLaval; Fluzone) ages 6mo and older (Afluria) 3 years and older 01/17/2016,02/18/2015,03/07/2014 Pfizer (ages 12 & older) Biv alent, COVID-19 05/16/2022 Pfizer SARS-CoV-2 COVID-19, mRNA, LNP-S, preservative free 08/21/2021 [...] Safety Answer Date Record ed Physical Abuse Unrecognized value 08/17/2024 Verbal Abuse Unrecognized value 08/17/2024 Sex and Gender Information Value Date [...] Health Maintenance Due Date Last Done Comments RSV Immunization Adult Patients (1 - Risk 50-74 years 1-dose series) 12/21/2013 Zoster Vaccines (1 of 2) 12/21/2013 Pneumococcal Vaccine: 50+ Years (2 of 2 - PCV) 09/28/2015 09/27/2014 HIV Screening 03/28/2022 DTaP,Tdap,and Td Vaccines (2 - Td or Tdap) 03/07/2024 03/07/2014 Depression Screening 04/19/2024 COVID-19 Vaccine ( season) 2024 05/16/2022, 08/21/2021, 02/24/2021, Additional history exists Influenza Vaccine (#1) 2024 , 02/03/2022, 02/17/2021, [...] Procedure Name Priority Date/Time Associated Diagnosis Comments LIPID PANEL WITH REFLEX TO DIRECT LDL Routine 08/17/2024 3:17 AM EDT COMPREHENSIVE METABOLIC PANEL STAT 08/16/2024 4:07 PM EDT COLONOSCOPY Routine 11/22/2017 HEPATITIS C SCREENING Routine 03/05/2017 from Last 3 Months or Most Recently Relevant to Health Maintenance Results * Lipid panel with reflex to direct LDL (08/17/2024 3:17 AM EDT) Cholesterol 122 0 - 200 mg/dL LAB CHEMISTRY METHOD 08/17/2024 3:53 AM [facility] Triglycerides 51 0 - 150 mg/dL LAB CHEMISTRY METHOD 08/17/2024 3:53 AM [facility] HDL 56 >=40 mg/dL LAB CHEMISTRY METHOD 08/17/2024 3:53 AM [facility] LDL Calculated 56 0 - 100 mg/dL LAB CHEMISTRY METHOD 08/17/2024 3:53 AM [facility] VLDL Cholesterol Rolando 10.2 mg/dL LAB CHEMISTRY METHOD 08/17/2024 3:53 AM [facility] Non HDL Chol. (LDL+VLDL) 66 <145 mg/dL LAB CHEMISTRY METHOD 08/17/2024 3:53 AM [facility] Chol/HDL Ratio 2.2 0.0 - 4.4 LAB CHEMISTRY METHOD 08/17/2024 3:53 AM [facility] Blood Venous blood specimen / Unknown Venipuncture / Unknown 08/17/2024 3:17 AM EDT 08/17/2024 3:21 AM EDT Jeff Rowe MD LAB BLOOD ORDERABLES Latricia cassie Result [facility] [address] [place] [address], * (ABNORMAL) Comprehensive metabolic panel (08/16/2024 4:07 PM EDT) Sodium 141 133 - 145 mmol/L LAB CHEMISTRY METHOD 08/16/2024 5:20 PM [facility] Potassium 4.0 3.5 - 5.5 mmol/L LAB CHEMISTRY METHOD 08/16/2024 5:20 PM [facility] Chloride 108 96 - 110 mmol/L LAB CHEMISTRY METHOD 08/16/2024 5:20 PM [facility] CO2 26 21 - 32 mmol/L LAB CHEMISTRY METHOD 08/16/2024 5:20 PM [facility] Anion Gap 7 3 - 11 LAB CHEMISTRY METHOD 08/16/2024 5:20 PM [facility] Glucose 104(H) 70 - 100 mg/dL LAB CHEMISTRY METHOD 08/16/2024 5:20 PM [facility] BUN 11 5 - 25 mg/dL LAB CHEMISTRY METHOD 08/16/2024 5:20 PM [facility] Creatinine 0.99 0.70 - 1.30 mg/dL LAB CHEMISTRY METHOD 08/16/2024 5:20 PM [facility] eGFR 87 >=60 mL/min/1. 73m2 LAB CHEMISTRY METHOD 08/16/2024 5:20 PM [facility] Comment:Calculation based on the Chronic Kidney Disease Epidemiology Collaboration (CKD-EPI) equation refit without adjustment for race. BUN/Creatinine Ratio 11.1 LAB CHEMISTRY METHOD 08/16/2024 5:20 PM EDT [facility] Calcium 8.9 8.5 - 10.5 mg/dL LAB CHEMISTRY METHOD 08/16/2024 5:20 PM T [facility] AST (SGOT) 23 10 - 42 unit/L LAB CHEMISTRY METHOD 08/16/2024 5:20 PM T [facility] ALT (SGPT) 34 10 - 60 unit/L LAB CHEMISTRY METHOD 08/16/2024 5:20 PM EDT [facility] Alkaline Phosphatase 59 42 - 121 unit/L LAB CHEMISTRY METHOD 08/16/2024 5:20 PM [facility] Total Protein 7.2 6.0 - 8.0 g/dL LAB CHEMISTRY METHOD 08/16/2024 5:20 PM [facility] Albumin 3.9 3.2 - 5.0 g/dL LAB CHEMISTRY METHOD 08/16/2024 5:20 PM [facility] Total Bilirubin 0.4 0.0 - 1.4 mg/dL LAB CHEMISTRY METHOD 08/16/2024 5:20 PM [facility] Blood Venous blood specimen / Unknown Venipuncture / Unknown 08/16/2024 4:07 PM EDT 08/16/2024 4:26 PM EDT Jeff Carrera MD LAB BLOOD ORDERABLES Final Resu lt [facility] [address] [place] [address], * Colonoscopy (11/22/2017) [facility] Colonoscopy no interpretation , abstracted Anatomical Region Laterality Modality Other [facility] Edward MELARA HEALTH MAINTENANCE Final Result * Hepatitis C Screening (03/05/2017) [facility] Hepatitis C Screening abstracted us Historical Provider HEALTH MAINTENANCE Final Result from Last 3 Months or Most Recently Relevant to Health Maintenance Insurance [facility] Advance Directives * Full Code - [...] currently active code status orders. Care Teams Shot Core Drill Operator Relationship Specialty Start Date End Date Olivia Smith MD [address] [place] [phone] PCP - General Internal Medicine 08/16/24
== END 2025-02-08 07:25 | disposition home or self-care (01) ==
LOC: HO.CT 07:24
PROVIDERS: PCP Internal Medicine; Visit Provider Surgery
DX: K43.2 Incisional hernia without obstruction or gangrene (principal)
CPT/HCPCS: 74176

== ENCOUNTER → 2025-02-08 07:27 | Outpatient (BNV) | payer OTHER, SELFPAY | PROVIDERS: PCP Internal Medicine; Visit Provider Radiology Diagnostic Radiology | DX: K46.9 Unspecified abdominal hernia without obstruction or gangrene (principal) | CPT/HCPCS: 74176 ==

== ENCOUNTER 2025-03-02 08:08 | Day surgery (SDC) | payer OTHER, SELFPAY ==
--- OUTSIDE RECORDS SUMMARY | 2025-02-22 07:52 | XMS_ITS | Clinical Summary ---
Author Organization [facility] [address] [facility] lding Address [address] [place] [address] Phone Care Team Providers Care C[employer]pillar Tractor Operator Name Role Phone Olivia Smith MD Primary Care Provider [phone] Allergies Active Allergy Reactions Criticality Noted Date [...] are difficult to maintain in real life, care home Hypogonadism in male 02/17/2017 Overview (02/01/2024): On [...] mg/dL LAB CHEMISTRY METHOD 08/17/2024 3:53 AM [facility] Triglycerides 51 0 - 150 mg/dL LAB CHEMISTRY METHOD 08/17/2024 3:53 AM [facility] HDL 56 >=40 mg/dL LAB CHEMISTRY METHOD 08/17/2024 3:53 AM [facility] LDL Calculated 56 0 - 100 mg/dL LAB CHEMISTRY METHOD 08/17/2024 3:53 AM [facility] VLDL Cholesterol Rolando 10.2 mg/dL LAB CHEMISTRY METHOD 08/17/2024 3:53 AM [facility] Non HDL Chol. (LDL+VLDL) 66 <145 mg/dL LAB CHEMISTRY METHOD 08/17/2024 3:53 AM [facility] Chol/HDL Ratio 2.2 0.0 - 4.4 LAB CHEMISTRY METHOD 08/17/2024 3:53 AM [facility] Blood Venous blood specimen / Unknown Venipuncture / Unknown 08/17/2024 3:17 AM EDT 08/17/2024 3:21 AM EDT Jeff Rowe MD LAB BLOOD ORDERABLES Latricia cassie Result [facility] [address] [place] [address], * (ABNORMAL) Comprehensive metabolic panel (08/16/2024 4:07 PM EDT) Sodium 141 133 - 145 mmol/L LAB CHEMISTRY METHOD 08/16/2024 5:20 PM [facility] Potassium 4.0 3.5 - 5.5 mmol/L LAB CHEMISTRY METHOD 08/16/2024 5:20 PM [facility] Chloride 108 96 - 110 mmol/L LAB CHEMISTRY METHOD 08/16/2024 5:20 PM [facility] CO2 26 21 - 32 mmol/L LAB CHEMISTRY METHOD 08/16/2024 5:20 PM [facility] Anion Gap 7 3 - 11 LAB CHEMISTRY METHOD 08/16/2024 5:20 PM [facility] Glucose 104(H) 70 - 100 mg/dL LAB CHEMISTRY METHOD 08/16/2024 5:20 PM [facility] BUN 11 5 - 25 mg/dL LAB CHEMISTRY METHOD 08/16/2024 5:20 PM [facility] Creatinine 0.99 0.70 - 1.30 mg/dL LAB CHEMISTRY METHOD 08/16/2024 5:20 PM [facility] eGFR 87 >=60 mL/min/1. 73m2 LAB CHEMISTRY METHOD 08/16/2024 5:20 PM [facility] Comment:Calculation based on the Chronic Kidney Disease Epidemiology Collaboration (CKD-EPI) equation refit without adjustment for race. BUN/Creatinine Ratio 11.1 LAB CHEMISTRY METHOD 08/16/2024 5:20 PM EDT [facility] Calcium 8.9 8.5 - 10.5 mg/dL LAB CHEMISTRY METHOD 08/16/2024 5:20 PM T [facility] AST (SGOT) 23 10 - 42 unit/L LAB CHEMISTRY METHOD 08/16/2024 5:20 PM T [facility] ALT (SGPT) 34 10 - 60 unit/L LAB CHEMISTRY METHOD 08/16/2024 5:20 PM EDT [facility] Alkaline Phosphatase 59 42 - 121 unit/L LAB CHEMISTRY METHOD 08/16/2024 5:20 PM [facility] Total Protein 7.2 6.0 - 8.0 g/dL LAB CHEMISTRY METHOD 08/16/2024 5:20 PM [facility] Albumin 3.9 3.2 - 5.0 g/dL LAB CHEMISTRY METHOD 08/16/2024 5:20 PM [facility] Total Bilirubin 0.4 0.0 - 1.4 mg/dL LAB CHEMISTRY METHOD 08/16/2024 5:20 PM [facility] Blood Venous blood specimen / Unknown Venipuncture / Unknown 08/16/2024 4:07 PM EDT 08/16/2024 4:26 PM EDT Jeff Carrera MD LAB BLOOD ORDERABLES Final Resu lt [facility] [address] [place] [address], * Colonoscopy (11/22/2017) [facility] Colonoscopy no interpretation , abstracted Anatomical Region Laterality Modality Other [facility] MELARA HEALTH MAINTENANCE Final Result * Hepatitis C Screening (03/05/2017) [facility] Hepatitis C Screening abstracted us Historical Provider HEALTH MAINTENANCE Final Result from Last 3 Months or Most Recently Relevant to Health Maintenance Insurance [facility] PL[facility] Advance Directives * Full Code - [...] currently active code status orders. Care Teams C[employer]pillar Tractor Operator Relationship Specialty Start Date End Date Olivia Smith MD [address] [place] [phone] PCP - General Internal Medicine 08/16/24
--- OUTSIDE RECORDS SUMMARY | 2025-02-22 07:52 | XMS_ITS ---
Author Name [facility] Organization Unknown Care Team Organization Name Specialty Phone Email Start Date End Da te [facility] 02/24/2022 12/06/2023
--- NOTE | 2025-02-27 09:37 | HO.ANESPROP2 ---
Documented by User: Cari Asif NP 02/27/25 09:56 HPI - Anesthesia Eval Consult details Narrative: 59 yr old male for Repair Recurrent Hernia Ventral Reducible with mesh Pt seen at [facility] ED 08/2024 for chest pain, observation stay, had echo, chest CTA. ACS ruled out. Talked to pt, does not follow with cardiology, he does light physical activity, feels well. No CP or SOB with light physical activity. Asthma: well controlled, on ICS/LABA, rare use of albuterol. Has post nasal drip/phlegm at baseline. 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 If so, by whom?: No Are you DNR?: No Advance Directives: No Advance Directives Information Provided: Yes Meds Allergies Allergy/AdvReac Type Severity Reaction Status Date / Time No Known Allergies Allergy Verified 11/06/24 15:25 Exam Narrative Narrative: ECHO 08/17/24 ? Left?Ventricle: There is mild concentric hypertrophy. Systolic function is normal with an ejection fraction of 55-60%. There is no diastolic dysfunction. ? There is mild hypokinesis of the basal anterolateral wall of the left ventricle. ? Left ventricle mild concentric hypertrophy. ? Right ventricle cavity is normal. Right ventricular systolic function is normal. ? Mitral?Valve: There is mild regurgitation. ? Tricuspid?Valve: There is mild regurgitation. The right ventricular systolic pressure is normal. Estimated RA pressure is 3 mmHg. The RVSP is estimated at 23 mmHg. 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, site unspecified Ventral hernia without obstruction or gangrene Other asthma Essential (primary) hypertension Hyperlipidemia Family History Family history of problems with anesthesia: No Surgical History Surgical History H/O cervical discectomy Hx of umbilical hernia repair History of Problems with Anesthesia: No Social History Social History Are you a primary rn long term care to a significant other at home: No Do you presently have visiting nurse or other home services: No Patient Tobacco Use Status: Former Tobacco user Have you been hit, kicked, punched, or otherwise hurt by someone within the past year? If so, by whom?: No Are you DNR?: No Advance Directives: No Advance Directives Information Provided: Yes Meds Allergies Allergy/AdvReac Type Severity Reaction Status Date / Time No Known Allergies Allergy Verified 11/06/24 15:25 Exam Airway Mallampati Class: III TM Dist: >3cm Neck ROM: Full Heart: rrr Lungs: cta Assessment and Plan Assessment Anesthesia Assessment: Anesthesia Plan Discussed and Chart Reviewed Final Anesthetic Review Family History of Problems with Anesthesia: No History of Problems with Anesthesia: No NPO: Yes ASA Class: III Final Preanesthetic Review: No Changes in Pt Med Stat, Meds/Allgs Chart Reviewed and Consent Obtained/Reviewed Patient Risk: Intermediate Procedure Risk: Low Anesthetic Plan Anesthetic Plan: GA Disposition: Standard PACU
[2025-02-28 07:13] VITALS: BMI 34.5
[2025-03-02] VITALS (7 sets, daily range): BP systolic 97–140; BP diastolic 60–82; PULSE 64–90; RESP 16–18; TEMP 36.2–36.6; O2SAT 93–96; BMI 35.9
[2025-03-02] MEDS: Lactated Ringers 1,000 ML 100 ML IVCONT (08:32)
--- NOTE | 2025-03-02 10:40 | MHC.SHP ---
Pre-Procedural Eval Section A - 24 Hr Update-Section A only Date of Service: 03/02/25 The patient is an INPATIENT: No Changes since office visit: No Cold of Flu in the past 2 weeks, No New Medical Problems, No Changes in Medication and No Patient answered all questions The patient has been examined within 24 hours of the surgical procedure. The History & Physical has been completed within 30 days and I have reviewed it.: Yes Section B - Complete if H&P > 30 days Chief Complaint: Incisional hernia without obstruction or gangrene Allergies: Allergies Allergy/AdvReac Type Severity Reaction Status Date / Time No Known Allergies Allergy Verified 03/02/25 08:50 Plan I have reviewed the history and physical and performed a pertinent physical examination on my patient. No changes have occurred unless specified. Time Spent With Patient Time: Total time managing care of this patient today ____ minutes.
--- NOTE | 2025-03-02 12:05 | P.OP_ITS ---
Operative Note Operative Note Date of Service: 03/02/25 Narrative: Preop diagnosis: Recurrent hernia, epigastric area Postop diagnosis: : The same Procedure: Repair of recurrent epigastric hernia, with large size Phasix umbilical mesh Surgeon: Owen Douglas MD congressional assistant: MYAH Phillips The patient is a 59-year with note of a hernia in the epigastric area. He did have a previous repair just inferior to this and this may have been a recurrence as the mesh appeared to be at the edge of this hernia he understood the technique of the planned procedure. He was aware of the risks, benefits, and alternatives He was brought to the operating room. He was placed supine under general anesthesia via endotracheal tube. The abdomen was prepped and draped in the usual sterile fashion. A surgical time-out was done. The patient received cefazolin 2 g IV preoperatively . I infiltrated the planned line of incision with lidocaine 1%. I made a midline longitudinal incision on the skin overlying the hernia. This carried down through the full-thickness of the skin and subcutaneous fat then used electrocautery to do need to divide through the subcutaneous fat until was able to visualize the hernia contents. This appeared to be all fat containing. This was a large amounts of omental fat to the hernia. I dissected the entire contents of the hernia off of the thick subcutaneous layer until was able to visualize the fascia. Was note of a lot of adhesions tethering the hernia contents with a fascial defect which was actually narrow. I had to do careful lysis of adhesions to free this up. This was done with electrocautery as well as with the scissors. I was able to define the fascial defect well but in view of the large size of the herniated fat, he would not be reduced. I had to enlarge the fascial defect a little bit using electrocautery. Continued to do lysis of adhesions he will free up the hernia contents from the fascia until I was able to reduce this completely The original fascial defect measured about 3.5 cm. We made sure that the margins were clear of adhesions and bowel loops. I applied Zuleyma clamps on 4 quadrants. I then decided to use the large size Ventralex umbilical mesh. I applied trans fascial sutures using Prolene 2-0 on 4 quadrants Prolene side of the mesh in a parachute fashion I then positioned the mesh flat under the fascial defect with note of good overlap. I tightened the trans fascial sutures to secured the mesh, making sure that there were no bowel loops caught between the mesh and the abdominal wall. Once this was confirmed, I proceeded to I all the trans fascial sutures I closed the fascial defect with a running Maxon 1 stitch, incorporating the Prolene side of the mesh with the sutures periodically. The thick subcutaneous layer was reapposed with Polysorb 3-0 simple interrupted sutures. Skin closure was achieved with Polysorb 4-0 subcuticular running stitch The area was then infiltrated with Marcaine 0.5% for postop analgesia. Dressings were applied and the procedure was completed The patient tolerated the procedure well. There were no immediate complications. Initial and final counts of sponges and instruments were correct. Estimated blood loss was about 25 cc. The patient was extubated without difficulty and transferred to the recovery room with stable vital signs.
[2025-03-02] MEDS: oxyCODONE HCl Immed Release 5 MG TABLET PO (12:55)
== END 2025-03-02 13:22 | disposition home or self-care (01) ==
PROVIDERS: PCP Internal Medicine; Visit Provider Surgery
PROC: (CPT 49615; principal; 2025-03-02 09:40)
DX: K43.2 Incisional hernia without obstruction or gangrene (principal); R10.13 Epigastric pain; J45.909 Unspecified asthma, uncomplicated; N40.0 Benign prostatic hyperplasia without lower urinary tract symptoms; I10 Essential (primary) hypertension; E78.5 Hyperlipidemia, unspecified; Z79.51 Long term (current) use of inhaled steroids; Z79.899 Other long term (current) drug therapy; Z98.890 Other specified postprocedural states; Z87.891 Personal history of nicotine dependence
CPT/HCPCS: 49615; C1781; J0330; J0690; J1100; J1885; J2003; J2250; J2405; J2795; J3010

== ENCOUNTER → 2025-03-02 08:08 | Outpatient (BNV) | payer OTHER, SELFPAY | PROVIDERS: PCP Internal Medicine; Visit Provider Surgery | DX: K43.2 Incisional hernia without obstruction or gangrene (principal) | CPT/HCPCS: 49615; 99499 ==

== ENCOUNTER → 2025-03-12 14:57 | Outpatient (BNVA) | payer OTHER, SELFPAY | PROVIDERS: PCP Internal Medicine; Visit Provider Surgery | DX: Z98.890 Other specified postprocedural states (principal) | CPT/HCPCS: 99211 ==

== ENCOUNTER 2025-03-20 08:51 | Outpatient (AMB) | payer OTHER, SELFPAY ==
--- NOTE | 2025-03-20 08:55 | MHC.OFFVIS ---
Vital Signs 03/20/25 08:57 Height 6 ft 3 in Weight 287 lb 11.252 oz BMI 36.0 Intake Visit Reasons: s/p Ventral hernia w/mesh Intake Note: Patient presents for post-op status post repair of recurrent epigastric hernia with large size phasix umbilical mesh. (Dr. Douglas 03/02/2025) Pt c/o; reports no complaints at this time. Child Welfare Director Required: No Accompanied by: Self / Same As Patient Allergies No Known Allergies Allergy (Verified 03/20/25 08:58) HPI HPI s/p Ventral hernia w/mesh: Details: overall doing well. states he did feel like his head was cloudy, having difficulty concentrating since procedure. He is also to resolving. Denies any significant pain. Denies nausea vomiting. Does endorse constipation, states he was constipated prior to procedure and this is worsened with narcotics although taking Colace. He has since stopped taking narcotics as he does not need them for pain his bowel movements have normalized. Has questions about snow removal, if he is able to do so with his activity restrictions. 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, site unspecified Ventral hernia without obstruction or gangrene Other asthma Essential (primary) hypertension Hyperlipidemia Surgical History (Updated 03/20/25 @ 09:08 by Jam Bhakta PA-C) Hx of hernia repair (~03/02/25) H/O cervical discectomy Hx of umbilical hernia repair Social History Are you a primary career services representative to a significant other at home: No Do you presently have visiting nurse or other home services: No Patient Tobacco Use Status: Former Tobacco user Review of Systems Const All systems reviewed & are unremarkable except as noted in HPI and below Physical Exam Vital Signs: BMI result Body Mass Index 36.0 Const General: comfortable and no acute distress Orientation/consciousness: No patient oriented x3 Resp Effort & Inspection: normal respiratory effort and able to speak in complete sentences GI Other: Incision site well healed, no surrounding erythema, no drainage, nontender. Inspection: No distended Palpation (GI): Soft to palpation and nontender Neuro General: No patient oriented x3 Assessment & Plan Assessment & Plan (1) Hx of hernia repair: Onset Date: ~03/02/25 Comment: Repair of recurrent epigastric hernia, with large size Phasix umbilical mesh-Dr. Misael MD FACS Code(s): Z98.890 - Other specified postprocedural states; Z87.19 - Personal history of other diseases of the digestive system Category: Surgical Plan 59-year-old male s/p ventral hernia repair with Phasix mesh on 03/02/[address] Joe is returning of his 1st postop visit. Overall patient doing well, did feel weak using a candidate for a few weeks postop, is possible this is related to incision but this has been resolving spontaneously. Additionally having some constipation, states he is constipated at baseline which was exacerbated by narcotics even with taking stool softener. He has since stopped taking narcotics and his bowel movements have regulated. Otherwise tolerating diet, denies nausea vomiting. On exam abdomen soft and benign incision site appears to be healing well no concerns for infection at this time. We will continue with activity restrictions no heavy lifting greater than 15 20 lb for the next 3 weeks. In regards to snow removal, patient was hoping to be able to use a animal care worker in the of the upcoming snowstorm however I recommended that he did not do this as this would likely exceed his activity restrictions, he understands and will try to make other accommodations for snow. If like to see him back in 3 weeks for routine follow-up. He can call with any questions or concerns prep Coding Level of Care Code Est Pt Level 4 (04686) Diagnoses Hx of hernia repair Z98.890; Z87.19
[2025-03-20 08:57] VITALS: BMI 36.0
--- OUTSIDE RECORDS SUMMARY | 2025-03-20 09:06 | XMS_ITS | Clinical Summary ---
Author Organization [facility] [address] [facility] lding Address [address] [place] [address] Phone Care Team Providers Care Mailmaster Name Role Phone Olivia Smith MD Primary Care Provider [phone] Allergies Active Allergy Reactions Criticality Noted Date [...] are difficult to maintain in real life, fpc Hypogonadism in male 02/17/2017 Overview (02/01/2024): On [...] Years Used Date Smoking Tobacco: Former Cigarettes 1 Q uit: 03/05/1998 Smokeless Tobacco: Never Tobacco [...] mg/dL LAB CHEMISTRY METHOD 08/17/2024 3:53 AM [facility] Triglycerides 51 0 - 150 mg/dL LAB CHEMISTRY METHOD 08/17/2024 3:53 AM [facility] HDL 56 >=40 mg/dL LAB CHEMISTRY METHOD 08/17/2024 3:53 AM [facility] LDL Calculated 56 0 - 100 mg/dL LAB CHEMISTRY METHOD 08/17/2024 3:53 AM [facility] VLDL Cholesterol Rolando 10.2 mg/dL LAB CHEMISTRY METHOD 08/17/2024 3:53 AM [facility] Non HDL Chol. (LDL+VLDL) 66 <145 mg/dL LAB CHEMISTRY METHOD 08/17/2024 3:53 AM [facility] Chol/HDL Ratio 2.2 0.0 - 4.4 LAB CHEMISTRY METHOD 08/17/2024 3:53 AM [facility] Blood Venous blood specimen / Unknown Venipuncture / Unknown 08/17/2024 3:17 AM EDT 08/17/2024 3:21 AM EDT Jeff Rowe MD LAB BLOOD ORDERABLES Latricia cassie Result [facility] [address] [place] [address], * (ABNORMAL) Comprehensive metabolic panel (08/16/2024 4:07 PM EDT) Sodium 141 133 - 145 mmol/L LAB CHEMISTRY METHOD 08/16/2024 5:20 PM [facility] Potassium 4.0 3.5 - 5.5 mmol/L LAB CHEMISTRY METHOD 08/16/2024 5:20 PM [facility] Chloride 108 96 - 110 mmol/L LAB CHEMISTRY METHOD 08/16/2024 5:20 PM [facility] CO2 26 21 - 32 mmol/L LAB CHEMISTRY METHOD 08/16/2024 5:20 PM [facility] Anion Gap 7 3 - 11 LAB CHEMISTRY METHOD 08/16/2024 5:20 PM [facility] Glucose 104(H) 70 - 100 mg/dL LAB CHEMISTRY METHOD 08/16/2024 5:20 PM [facility] BUN 11 5 - 25 mg/dL LAB CHEMISTRY METHOD 08/16/2024 5:20 PM [facility] Creatinine 0.99 0.70 - 1.30 mg/dL LAB CHEMISTRY METHOD 08/16/2024 5:20 PM [facility] eGFR 87 >=60 mL/min/1. 73m2 LAB CHEMISTRY METHOD 08/16/2024 5:20 PM [facility] Comment:Calculation based on the Chronic Kidney Disease Epidemiology Collaboration (CKD-EPI) equation refit without adjustment for race. BUN/Creatinine Ratio 11.1 LAB CHEMISTRY METHOD 08/16/2024 5:20 PM EDT [facility] Calcium 8.9 8.5 - 10.5 mg/dL LAB CHEMISTRY METHOD 08/16/2024 5:20 PM T [facility] AST (SGOT) 23 10 - 42 unit/L LAB CHEMISTRY METHOD 08/16/2024 5:20 PM T [facility] ALT (SGPT) 34 10 - 60 unit/L LAB CHEMISTRY METHOD 08/16/2024 5:20 PM EDT [facility] Alkaline Phosphatase 59 42 - 121 unit/L LAB CHEMISTRY METHOD 08/16/2024 5:20 PM [facility] Total Protein 7.2 6.0 - 8.0 g/dL LAB CHEMISTRY METHOD 08/16/2024 5:20 PM [facility] Albumin 3.9 3.2 - 5.0 g/dL LAB CHEMISTRY METHOD 08/16/2024 5:20 PM [facility] Total Bilirubin 0.4 0.0 - 1.4 mg/dL LAB CHEMISTRY METHOD 08/16/2024 5:20 PM [facility] Blood Venous blood specimen / Unknown Venipuncture / Unknown 08/16/2024 4:07 PM EDT 08/16/2024 4:26 PM EDT us Jeff Carrera MD LAB BLOOD ORDERABLES Final Resu lt [facility] [address] [place] [address], * Colonoscopy (11/22/2017) [facility] Colonoscopy no interpretation , abstracted Anatomical Region Laterality Modality Other Historical [facility] Final Result * Hepatitis C Screening (03/05/2017) [facility] Hepatitis C Screening abstracted us Historical Provider HEALTH MAINTENANCE Final Result from Last 3 Months or Most Recently Relevant to Health Maintenance Insurance [facility] Advance Directives * Full Code [...] currently active code status orders. Care Teams Mailmaster Relationship Specialty Start Date End Date Olivia Smith MD [address] [place] [phone] PCP - General Internal Medicine 08/16/24
== END 2025-03-20 09:04 | disposition home or self-care (01) ==
LOC: HO.HGS 08:52
PROVIDERS: PCP Internal Medicine
DX: Z98.890 Other specified postprocedural states (principal); Z87.19 Personal history of other diseases of the digestive system
CPT/HCPCS: 99214

== ENCOUNTER → 2025-03-20 08:51 | Outpatient (BNVA) | payer OTHER, SELFPAY | PROVIDERS: PCP Internal Medicine | DX: Z48.815 Encounter for surgical aftercare following surgery on the digestive system (principal); K59.00 Constipation, unspecified; Z98.890 Other specified postprocedural states; Z87.19 Personal history of other diseases of the digestive system | CPT/HCPCS: 99212 ==

== ENCOUNTER 2025-04-17 10:16 | Outpatient (AMB) | payer OTHER, SELFPAY ==
--- NOTE | 2025-04-17 10:17 | A.OFFVIS_ITS ---
Vital Signs 04/17/25 10:21 Height 6 ft 3 in Weight 286 lb BMI 35.7 BP 118/72 Blood Pressure Location Rt brachial Position Sitting Pulse 64 Intake Visit Reasons: 3wk follow up s/p ventral hernia w/mesh Intake Note: Patient here for 3wk follow up from 03-20-2025 visit. Status post repair of recurrent epigastric hernia with large size phasix umbilical mesh. Surgery () 03/02/2025 Patient c/o: no concerns. Reports incision healed well. No longer taking pain meds. Cottage Cheese Maker Required: No Accompanied by: Self / Same As Patient Allergies No Known Allergies Allergy (Verified 04/17/25 10:21) HPI HPI 3wk follow up s/p ventral hernia w/mesh: Details: Doing well no concerns. Still avoiding heavy lifting. No issues with ambulation. Diet and bowel function are good. He did admit to snowblowing during the last storm because he felt good, had no complications. 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, site unspecified Ventral hernia without obstruction or gangrene Other asthma Essential (primary) hypertension Hyperlipidemia Surgical History (Updated 03/20/25 @ 09:08 by Jam Bhakta PA-C) Hx of hernia repair (~03/02/25) H/O cervical discectomy Hx of umbilical hernia repair Social History Are you a primary wound care coordinator to a significant other at home: No Do you presently have visiting nurse or other home services: No Patient Tobacco Use Status: Former Tobacco user Physical Exam Vital Signs: Last Vital Signs Pulse 64 04/17/25 10:21 BP 118/72 04/17/25 10:21 BMI result Body Mass Index 35.7 Const General: comfortable and no acute distress Orientation/consciousness: patient oriented x3 Resp Effort & Inspection: normal respiratory effort and able to speak in complete sentences GI Other: Umbilical hernia incision well healed, no recurrence on Valsalva, no evidence of infection Inspection: No distended Palpation (GI): Soft to palpation, nontender and no guarding Neuro General: patient oriented x3 Assessment & Plan Assessment & Plan (1) Hx of hernia repair: Onset Date: ~03/02/25 Comment: Repair of recurrent epigastric hernia, with large size Phasix umbilical mesh-Dr. Misael MD FACS Code(s): Z98.890 - Other specified postprocedural states; Z87.19 - Personal history of other diseases of the digestive system Category: Surgical Plan 59-year-old male s/p ventral hernia repair with Phasix mesh on 03/02/[address] Douglas is returning for follow-up. Overall patient doing well, he has been doing very well. Denies any pain. States he has been moving his bowels regularly, has been having a good appetite. On exam abdomen soft and benign the incision site appears to be well healed. There was no evidence of infection. Additionally there was no evidence of recurrence with Valsalva. He has been avoiding heavy lifting though he notes that he did use the eyeglass fitter during the last no stone. He felt good and did not have any pain after. He is okay to resume activity as tolerated. I did recommend he start slow and slowly increase towards his baseline level of desired activity. No longer requiring follow up, can follow up as needed with any concerns in the future Coding Level of Care Code Est Pt Level 3 (24400) Diagnoses Hx of hernia repair Z98.890; Z87.19
[2025-04-17 10:21] VITALS: BP 118/72; PULSE 64; BMI 35.7
--- OUTSIDE RECORDS SUMMARY | 2025-04-17 13:37 | XMS_ITS | Clinical Summary ---
Author Organization [facility] [address] [facility] [address] Address [address] [place] [address] Phone Care Team Providers Care Brass Pickler Name Role Phone Olivia Smith MD Primary Care Provider [phone] Allergies Active Allergy Reactions Criticality Noted Date [...] are difficult to maintain in real life, vermin exterminator Hypogonadism in male 02/17/2017 Overview (02/01/2024): On [...] Orientation Straight 08/16/2024 4: 32 PM EDT Last Filed Vital Signs Vital Sign Reading [...] Health Maintenance Due Date Last Done Comments Drug Screen 1965 Non-Opioid Controlled Substance Agreement 1965 RSV Immunization Adult Patients (1 - Risk [...] mg/dL LAB CHEMISTRY METHOD 08/17/2024 3:53 AM [facility] Triglycerides 51 0 - 150 mg/dL LAB CHEMISTRY METHOD 08/17/2024 3:53 AM [facility] HDL 56 >=40 mg/dL LAB CHEMISTRY METHOD 08/17/2024 3:53 AM [facility] LDL Calculated 56 0 - 100 mg/dL LAB CHEMISTRY METHOD 08/17/2024 3:53 AM [facility] VLDL Cholesterol Rolando 10.2 mg/dL LAB CHEMISTRY METHOD 08/17/2024 3:53 AM [facility] Non HDL Chol. (LDL+VLDL) 66 <145 mg/dL LAB CHEMISTRY METHOD 08/17/2024 3:53 AM [facility] Chol/HDL Ratio 2.2 0.0 - 4.4 LAB CHEMISTRY METHOD 08/17/2024 3:53 AM EDT [facility] Blood Venous blood specimen / Unknown Venipuncture / Unknown 08/17/2024 3:17 AM EDT 08/17/2024 3:21 AM EDT us Jeff Rowe MD LAB BLOOD ORDERABLES Latricia l Result [facility] [address] [place] [address], [place] [phone] * (ABNORMAL) Comprehensive metabolic panel (08/16/2024 4:07 PM EDT) Sodium 141 133 - 145 mmol/L LAB CHEMISTRY METHOD 08/16/2024 5:20 PM [facility] Potassium 4.0 3.5 - 5.5 mmol/L LAB CHEMISTRY METHOD 08/16/2024 5:20 PM [facility] Chloride 108 96 - 110 mmol/L LAB CHEMISTRY METHOD 08/16/2024 5:20 PM [facility] CO2 26 21 - 32 mmol/L LAB CHEMISTRY METHOD 08/16/2024 5:20 PM [facility] Anion Gap 7 3 - 11 LAB CHEMISTRY METHOD 08/16/2024 5:20 PM [facility] Glucose 104(H) 70 - 100 mg/dL LAB CHEMISTRY METHOD 08/16/2024 5:20 PM [facility] BUN 11 5 - 25 mg/dL LAB CHEMISTRY METHOD 08/16/2024 5:20 PM [facility] Creatinine 0.99 0.70 - 1.30 mg/dL LAB CHEMISTRY METHOD 08/16/2024 5:20 PM [facility] eGFR 87 >=60 mL/min/1. 73m2 LAB CHEMISTRY METHOD 08/16/2024 5:20 PM [facility] Comment:Calculation based on the Chronic Kidney Disease Epidemiology Collaboration (CKD-EPI) equation refit without adjustment for race. BUN/Creatinine Ratio 11.1 LAB CHEMISTRY METHOD 08/16/2024 5:20 PM EDT [facility] Calcium 8.9 8.5 - 10.5 mg/dL LAB CHEMISTRY METHOD 08/16/2024 5:20 PM [facility] AST (SGOT) 23 10 - 42 unit/L LAB CHEMISTRY METHOD 08/16/2024 5:20 PM [facility] ALT (SGPT) 34 10 - 60 unit/L LAB CHEMISTRY METHOD 08/16/2024 5:20 PM [facility] Alkaline Phosphatase 59 42 - 121 unit/L LAB CHEMISTRY METHOD 08/16/2024 5:20 PM [facility] Total Protein 7.2 6.0 - 8.0 g/dL LAB CHEMISTRY METHOD 08/16/2024 5:20 PM [facility] Albumin 3.9 3.2 - 5.0 g/dL LAB CHEMISTRY METHOD 08/16/2024 5:20 PM [facility] Total Bilirubin 0.4 0.0 - 1.4 mg/dL LAB CHEMISTRY METHOD 08/16/2024 5:20 PM [facility] Blood Venous blood specimen / Unknown Venipuncture / Unknown 08/16/2024 4:07 PM EDT 08/16/2024 4:26 PM EDT us Jeffhosea Carrera MD LAB BLOOD ORDERABLES Final Resu lt [facility] [address] [place] [address], * Colonoscopy (11/22/2017) Colonoscopy no interpretation , abstracted Anatomical Region Laterality Modality Other us Historical Provider HEALTH MAINTENANCE Final Result * Hepatitis C Screening (03/05/2017) Hepatitis C Screening abstracted us Historical Provider HEALTH MAINTENANCE Final Result from Last 3 Months or Most Recently Relevant to Health Maintenance Insurance [facility] Advance Directives * Full Code - [...] currently active code status orders. Care Teams Brass Pickler Relationship Specialty Start Date End Date Olivia Smith MD [address] [place] [phone] PCP - General Internal Medicine 08/16/24
== END 2025-04-17 10:35 | disposition home or self-care (01) ==
LOC: HO.HGS 10:17
PROVIDERS: PCP Internal Medicine
DX: Z98.890 Other specified postprocedural states (principal); Z87.19 Personal history of other diseases of the digestive system
CPT/HCPCS: 99213

== ENCOUNTER → 2025-04-17 10:16 | Outpatient (BNVA) | payer OTHER, SELFPAY | PROVIDERS: PCP Internal Medicine | DX: Z48.815 Encounter for surgical aftercare following surgery on the digestive system (principal); Z98.890 Other specified postprocedural states; Z87.19 Personal history of other diseases of the digestive system | CPT/HCPCS: 99212 ==